=== PATIENT | female | born 1955 | race Two or more races ===

== ENCOUNTER 2019-07-18 05:09 | Inpatient (IN) | payer MEDICARE, MEDICAID ==
[~2019-07-18] VITALS: Ht 162.6 cm; Wt 97.1 kg
[2019-07-18 14:20] VITALS: BP 134/94
--- NOTE | 2019-07-18 14:20 | NUR ---
tele cafeteria aide: admission direct admitted this 63 year old pt from [facility] with dx: spontaneous bacterial peritonitis. awake, a/ox4. no c/o pain or any discomfort, but right lower quadrant tender to palpate. kept pt npo. place pt on tele [id number]. family at bedside. oriented to room and surroundings. paged dr. walker thru exchange. vss, afebrile. noted with 3 incisions to abdomen. right lower abdomen incision draining with yellow colored output. there is a pressure tube dressing placed by [facility].Helen instructed to call for assistance. will continue to monitor.
[2019-07-18] MEDS ORDERED: ENAL10TA PO (15:05)
[2019-07-18] MEDS ORDERED: Z GUARD REMEDY 2 OZ OINT TP PRN (15:30)
--- NOTE | 2019-07-18 16:10 | NUR ---
m/s hog ringer: notes tele removed. family remains at bedside. right lower abdomen incision still draining with yellow colored output. will continue to monitor.
[2019-07-18] MEDS: ENALAPRIL MALEATE (10 MG) 10 MG TABLET PO SCH (17:00)
[2019-07-18] MEDS ORDERED: CEFTRIAXONE 1 G in IV D5W 50 ML IV SCH (17:00)
[2019-07-18] MEDS ORDERED: DIATR MEGLU/DIATRIZOATE SODIUM 30 ML BOTTLE (GASTROGRAPHIN) ONE (17:41)
--- NOTE | 2019-07-18 17:45 | NUR ---
m/s fruit grading supervisor: surgeon consult dr. escalante at bedside and talking to pt and family and updating plan of care. pt and family verbalized understanding. stat labs ordered and ct angio abdomen and pelvis with oral and iv contrast. pt signed the consent.
[2019-07-18 17:52] LABS: BASOPHILS % (AUTO) 0.1 % (0.0-2.0); EOSINOPHILS % (AUTO) 0.1 % (0.0-6.0); HEMATOCRIT 41 % (33-45); HEMOGLOBIN 13.6 g/dL (11.5-14.8); LYMPHOCYTES # (AUTO) 1.6 /CMM (0.8-4.8); MEAN CORPUSCULAR HGB CONC 33 g/dl (31.0-36.0); MEAN CORPUSCULAR VOLUME 87 fL (82-100); MONOCYTES # (AUTO) 1.8 /CMM (0.1-1.30); MONOCYTES % (AUTO) 4.6 % (2.0-12.0); NEUTROPHILS % (AUTO) 91.2 % (43.0-81.0); PLATELET COUNT (AUTO) 544 /CMM (150-450); RED BLOOD CELL COUNT(AUTO) 4.72 MIL/uL (4.0-5.2)
[2019-07-18 18:01] LABS: CALCIUM, SERUM 8.9 mg/dL (8.5-10.1); CARBON DIOXIDE 26 mmol/L (21-32); CHLORIDE 105 mmol/L (98-107); CREATININE 1.1 mg/dL (0.6-1.3); GLUCOSE 135 mg/dL (74-106); SODIUM SERUM 140 mmol/L (136-145); UREA NITROGEN, BLOOD 35 mg/dL (7-18)
[2019-07-18 18:10] LABS: WHITE BLOOD COUNT (AUTO) 39.5 K/uL (4.3-11.0)
[2019-07-18 18:15] LABS: ALANINE AMINOTRANSFERASE 169 U/L (12-78); ALKALINE PHOSPHATASE 228 U/L (46-116); ASPARTATE AMINOTRANSFERASE 239 U/L (15-37); BILIRUBIN,TOTAL 1.3 mg/dL (0.2-1.0); TOTAL PROTEIN, SERUM 5.9 g/dL (6.4-8.2)
--- NOTE | 2019-07-18 18:15 | NUR ---
m/s transportation analyst: notes inserted ngt to right nostril and verified placement by dr. escalante and ordered stat chest x-ray for placement. order carried out and called radiology dept for stat order.
--- NOTE | 2019-07-18 18:30 | NUR ---
m/s ct technician: notes dr. walker at bedside talking to family with verbal order to d'c rocephin iv. order read back and carried out.
--- NOTE | 2019-07-18 18:40 | NUR ---
m/s serials librarian: notes chest x-ray taken and dr. escalante looked at this film and informed me to clamped ngt, administer the oral contrast, then after ct angio pull ngt just a little and do another chest x-ray to verify placement. ngt clamped at this time with 600ml of greenish gastric contents in suction bottle. oral contrast already mixed by [facility] in 1000 ml, 800ml given via ngt per dali (tech). pt to be picked up after 2 hours and will give the 200ml remaining by tech as stated.
[2019-07-18] MEDS ORDERED: FEE PK DOSING 1 MIN EA MC ONE (18:42)
[2019-07-18 18:45] LABS: LYMPHOCYTES % (MANUAL) 4 % (16-48); NEUTROPHILS % (MANUAL) 93 (42-76)
[2019-07-18 18:46] LABS: EOSINOPHILS % (MANUAL) 1 % (0-4); MONOCYTES % (MANUAL) 2 % (0-11.0)
--- NOTE | 2019-07-18 19:30 | NUR ---
m/s cnc manufacturing engineer: notes report given to marcia (primary nurse) for continuity of care. dr. escalante instructed nurse to keep him posted.
--- NOTE | 2019-07-18 19:57 | NUR ---
MS SHAH INITIAL NOTES RECEIVED REPORT FROM AM NURSE ANTHONY/PABLO WHILE DOING OUR ROUNDS AND SEEN PT IN BED AWAKE AND ALERT WITH NGT TO CONTINOUS SUCTION NOTED GREENISH/BROWN OUTPUT . NO N/V NOTED. RESPIRATION EVEN AND UNLABORED NOT IN ANY ACUTE DISTRESS NOTED. HEPLOCK AT THIS TIME. KEPT HER ON HOB ELEVATED AT 45 DEGREES FOR ASPIRATION PRECAUTION. ENCOURAGE PT TO USED THE CALL LIGHT SYSTEM IF SHE NEEDS SOME HELP. SIDE RAILS X2 UP AND PLACE CALL LIGHT AT REACH. WILL CONTINUE MONITORING. Addendum: 07/18/19 at 2030 by LUCILA DUKES LVN NGT CLAMPED AT THIS TIME BY ANTHONY BECAUSE PT GOING FOR CT SCAN OF ABDOMEN WITH CONTRAST. NO NV NOTED.
[2019-07-18 20:00] VITALS: BP 139/86
[2019-07-18] MEDS: PIPERACILLIN /TAZOBACTAM 3.375 G in IV D5W 50 ML IV SCH (20:18)
[2019-07-18] MEDS ORDERED: IOHEXOL-350 100 ML VIAL IV ONE (20:48)
[2019-07-18] MEDS ORDERED: CT SWABBABLE VALVE TRANS SET 1 EA INFUS.SET MC ONE (20:48)
[2019-07-18] MEDS ORDERED: IV NS 0.9% 250 ML IV ONE (20:49)
[2019-07-18] MEDS ORDERED: CEFOTAXIME SODIUM 2 G in IV D5W 50 ML IV SCH (21:00)
--- NOTE | 2019-07-18 21:15 | NUR ---
ms angus notes pt picked up by radiology rn . pt accompanied by her family . no signs of any acute distress noted.
[2019-07-18] MEDS: METRONIDAZOLE 500MG/ NS 100ML 500 MG in PREMIX 1 EA IV SCH (21:22)
--- NOTE | 2019-07-18 21:30 | NUR ---
ms angus notes pt came back from CT scan of her abdomen. no signs of any acute distress noted. Antibiotic started to infused again. kept her warm and comfortable at all times. no n/v noted. no adverse reaction from any contrast given . waiting for result.
--- NOTE | 2019-07-18 21:40 | NUR ---
ms greco notes Dr Saunders called and asking for the result. he ordered to call him on his number [phone] regarding the result. called the limited radiology technician and spoke to charisse and he told me he will call [facility] to do the stat result for the CT scan of the pt. will continue monitoring. Addendum: 07/19/19 at 0454 by LUCILA DUKES LVN radiology called DR Mica Simon to read the result.
--- NOTE | 2019-07-18 22:14 | NUR ---
MS PABLO NOTES Called Dr. Saunders to let him know the result of the CT scan. Spoke to him and he asked to take photo of the result using hospital /screen making supervisor cellphone and text to him.
[2019-07-18] MEDS: VANCOMYCIN 1 GM in IV D5W 250 ML IV SCH (22:30)
--- NOTE | 2019-07-18 22:34 | NUR ---
MS/RN NOTES IV ANTIBIOTIC VANCOMYCIN 1 GRAM INFUSING FOR ONE HOUR, PATIENT RIGHT AC ARM WITH NO INFILTRATION OR REDNESS, MONITORING FOR ANY CHANGES.
--- NOTE | 2019-07-18 23:45 | NUR ---
MS PABLO NOTES SPOKE TO DR MYERS AND GOT ORDERED TO CONTINUE MONITORING THE PT. NGT IN INTERMITTENT SUCTION AND KEPT PT NPO AND SOME BLOOD TEST IN AM ( CMP, LACTIC ACID). NO SURGERY AT THIS TIME. THEN AFTER THAT SPOKE TO THE FAMILY THAT IS WAITING AT THE PT BEDSIDE AND TOLD THEM WHAT'S THE MD ORDERED. PT AWAKE AND AWARE , DENIES ANY PAIN OR ANY DISCOMFORT. KEPT HER COMFORTABLE AT ALL TIMES. DUE ANTIBIOTIC INFUSING AT THIS TIME. NO ADVERSE REACTION NOTED.
--- NOTE | 2019-07-19 02:04 | NUR ---
ms angus notes pt sleeping at this time without any acute distress noted. NGT suctioned well with greenish colored output. no N/V noted as well as Aspiration noted. kept hob elevated at all times. will continue monitoring. place call light at reach.
[2019-07-19] MEDS: PIPERACILLIN /TAZOBACTAM 3.375 G in IV D5W 50 ML IV SCH ×4 (02:56→20:45)
[2019-07-19] MEDS: ONDANSETRON HCL/PF 4 MG/2 ML VIAL IVP PRN (03:24)
--- NOTE | 2019-07-19 03:24 | NUR ---
rn rehab notes checked pt and noticed dressings soak and wet , then after dressings changes, pt complaint of nauseated, Zofran IVP administered by another nurse as ordered. kept pt hob elevated and still on NGT with intermittent suction. no acute distress noted.
[2019-07-19] MEDS: METRONIDAZOLE 500MG/ NS 100ML 500 MG in PREMIX 1 EA IV SCH ×3 (04:58→21:29)
--- NOTE | 2019-07-19 07:20 | NUR ---
MS RN NOTES PATIENT IN BED, ALERT ORIENTED X 3. NO ACUTE DISTRESS NOTED BREATHING UNLABORED. IV ACCESS PATENT AND INTACT, NO REDNESS OR SWELLING NOTED.HOB ELEVATED .NGT INTACT SUCTIONING AND GREENISH OUTPUT. SAFETY MEASURES IN PLACE. CALL LIGHT WITHIN REACH. WILL CONTINUE TO MONITOR ACCORDINGLY.
[2019-07-19 07:38] LABS: BASOPHILS # (AUTO) 0.2 /CMM (0.0-0.2); BASOPHILS % (AUTO) 0.5 % (0.0-2.0); EOSINOPHILS % (AUTO) 0.2 % (0.0-6.0); HEMATOCRIT 42 % (33-45); HEMOGLOBIN 13.8 g/dL (11.5-14.8); LYMPHOCYTES # (AUTO) 1.6 /CMM (0.8-4.8); LYMPHOCYTES % (AUTO) 4.9 % (20.0-44.0); MEAN CORPUSCULAR HGB CONC 33 g/dl (31.0-36.0); MEAN CORPUSCULAR VOLUME 88 fL (82-100); MONOCYTES # (AUTO) 1.6 /CMM (0.1-1.30); MONOCYTES % (AUTO) 4.8 % (2.0-12.0); NEUTROPHILS # (AUTO) 29.7 /CMM (1.8-8.9); NEUTROPHILS % (AUTO) 89.6 % (43.0-81.0); PLATELET COUNT (AUTO) 534 /CMM (150-450); RED BLOOD CELL COUNT(AUTO) 4.75 MIL/uL (4.0-5.2)
--- NOTE | 2019-07-19 07:43 | NUR ---
MS STUDIO OPERATIONS ENGINEER IN CHARGE CLOSING NOTES PT AWAKE AND ALERT , DENIES ANY PAIN OR ANT DISCOMFORT. NO N/V NOTED AT THIS TIME. ALL DUE MEDS GIVEN AND ALL NEEDS MET. NGT STILL SUCTIONING AND GREENISH OUTPUT NOTED 500ML OUTPUT NOTED. KEPT HOB ELEVATED AT ALL TIMES. NO ACUTE DISTRESS NOTED. KEPT HER COMFORTABLE AT ALL TIMES. ENDORSE TO AM NURSE FOR CONTINUITY OF CARE. PLACE CALL LIGHT AT REACH.
[2019-07-19 07:47] LABS: WHITE BLOOD COUNT (AUTO) 33.2 K/uL (4.3-11.0)
--- NOTE | 2019-07-19 07:55 | NUR ---
MS RN NOTES LABORATORY TEST RESULTED WITH WBC CRITICALLY HIGH 33.2, JESSENIA PORTER ON THE FLOOR AWARE. NO NEW ORDERS MADE AT THIS TIME.
[2019-07-19 07:59] LABS: ALBUMIN 1.8 g/dL (3.4-5.0); BILIRUBIN,TOTAL 1.2 mg/dL (0.2-1.0); CALCIUM, SERUM 8.9 mg/dL (8.5-10.1); CREATININE 1.2 mg/dL (0.6-1.3); MAGNESIUM 2.4 mg/dL (1.8-2.4); PHOSPHORUS 3.2 mg/dL (2.5-4.9); POTASSIUM 3.9 mmol/L (3.5-5.1); TOTAL PROTEIN, SERUM 5.9 g/dL (6.4-8.2)
[2019-07-19 08:00] VITALS: BP 133/79
[2019-07-19 08:15] LABS: EOSINOPHILS % (MANUAL) 2 % (0-4); LYMPHOCYTES % (MANUAL) 7 % (16-48); MONOCYTES % (MANUAL) 4 % (0-11.0); NEUTROPHILS % (MANUAL) 87 (42-76)
[2019-07-19] MEDS: ENALAPRIL MALEATE (10 MG) 10 MG TABLET PO SCH ×2 (09:00→17:00)
[2019-07-19] MEDS: VANCOMYCIN 1 GM in IV D5W 250 ML IV SCH ×2 (10:11→22:15)
[2019-07-19] MEDS: IV NS 0.9% 1,000 ML IV PRN (12:55)
[2019-07-19 15:45] VITALS: BP 131/61
--- NOTE | 2019-07-19 19:25 | NUR ---
MS RN NOTES PATIENT IN BED, ALERT ORIENTED X 3. NO ACUTE DISTRESS NOTED BREATHING UNLABORED. IV ACCESS PATENT AND INTACT, NO REDNESS OR SWELLING NOTED.HOB ELEVATED .NGT STILL SUCTIONING AND GREENISH OUTPUT 500ML. NEEDS ATTENDED AND ANTICIPATION. SAFETY MEASURES IN PLACE. CALL LIGHT WITHIN REACH. ENDORSED TO NIGHT NURSE FOR CONTINUITY OF CARE.
--- NOTE | 2019-07-19 19:30 | NUR ---
MS RN OPENING NOTES RECEIVED PATIENT FROM MORNING SHIFT, ALERT AND ORIENTED X 4 BR[place] SPEAKING. FAMILY ON BEDSIDE; VERBALLY RESPONSIVE AND ABLE TO FOLLOW DIRECTIONS. BREATHING REGULAR AND UNLABORED ON ROOM AIR. NASOGASTRIC TUBE INTACT AND PATENT WITH GREENISH OUTPUT NOTED ON SUCTION CANISTER, MODERATE AMOUNT. ON INTERMITTENT SUCTION. RIGHT AC G 20 IV LINE INTACT AND PATENT INFUSING WELL WITH NO BLEEDING OR S/S OF INFILTRATION SEEN. RIGHT LOWER ABDOMEN POST SURGICAL SITE NOTED WITH COLLECTION BAG FOR DRAINAGE WITH MODERATE CLEAR YELLOW OUTPUT. NO COMPLAINTS OF PAIN/DISCOMFORT OR NAUSEA/VOMITING REPORTED OF THE TIME. BED LOW AND LOCKED ON SEMI FOWLERS POSITION. WILL CONTINUE TO MONITOR.
[2019-07-19 20:00] VITALS: BP 118/73
--- NOTE | 2019-07-19 20:30 | NUR ---
MS RN NOTES SEEN AND EXAMINED BY , DISCUSSED PATIENT CONDITION WITH FAMILY ON BEDSIDE TO TRANSLATE TO VIETNAMESE. WILL CONTINUE TO MONITOR.
[2019-07-20] MEDS: PIPERACILLIN /TAZOBACTAM 3.375 G in IV D5W 50 ML IV SCH ×4 (03:10→20:53)
[2019-07-20] MEDS: IV NS 0.9% 1,000 ML IV PRN ×2 (04:13→18:18)
[2019-07-20] MEDS: METRONIDAZOLE 500MG/ NS 100ML 500 MG in PREMIX 1 EA IV SCH ×3 (04:29→21:34)
--- NOTE | 2019-07-20 06:34 | NUR ---
MS RN CLOSING NOTES PATIENT IN BED, ALERT AND ORIENTED X 4 NIGERIEN SPEAKING. VERBALLY RESPONSIVE AND ABLE TO FOLLOW DIRECTIONS. BREATHING REGULAR AND UNLABORED ON ROOM AIR. NASOGASTRIC TUBE INTACT AND PATENT WITH GREENISH OUTPUT NOTED, ON MODERATE AMOUNT. MAINTAINED ON LOW INTERMITTENT SUCTION. SUCTION CANISTER AND TUBING CHANGED. RIGHT AC G 20 IV LINE INTACT AND PATENT INFUSING WELL WITH NO BLEEDING OR S/S OF INFILTRATION/INFECTION SEEN. RIGHT LOWER ABDOMEN POST SURGICAL SITE WITH COLLECTION BAG FOR DRAINAGE INTACT WITH LARGE CLEAR YELLOW TO LIGHT ORANGE OUTPUT. CHANGED THRICE IN THE SHIFT. ON IV ATB's WITH ADVERSE REACTIONS NOTED. NO COMPLAINTS OF PAIN/DISCOMFORT OR NAUSEA/VOMITING REPORTED WITHIN THE SHIFT. BED LOW AND LOCKED ON SEMI FOWLERS POSITION. WILL ENDORSE TO MORNING SHIFT FOR AM LABS, POSSIBLE TRANSFER [facility] AND [facility]. Addendum: 07/20/19 at 0641 by LES TOBAR RN ON IV ATB's WITH NO ADVERSE REACTIONS NOTED
[2019-07-20 07:27] LABS: BASOPHILS % (AUTO) 0.2 % (0.0-2.0); EOSINOPHILS % (AUTO) 0.2 % (0.0-6.0); HEMATOCRIT 40 % (33-45); HEMOGLOBIN 12.9 g/dL (11.5-14.8); LYMPHOCYTES # (AUTO) 1.3 /CMM (0.8-4.8); LYMPHOCYTES % (AUTO) 5.1 % (20.0-44.0); MEAN CORPUSCULAR HGB CONC 32 g/dl (31.0-36.0); MEAN CORPUSCULAR VOLUME 88 fL (82-100); MONOCYTES # (AUTO) 1.9 /CMM (0.1-1.30); MONOCYTES % (AUTO) 7.6 % (2.0-12.0); NEUTROPHILS # (AUTO) 21.2 /CMM (1.8-8.9); NEUTROPHILS % (AUTO) 86.9 % (43.0-81.0); PLATELET COUNT (AUTO) 561 /CMM (150-450); RED BLOOD CELL COUNT(AUTO) 4.55 MIL/uL (4.0-5.2); WHITE BLOOD COUNT (AUTO) 24.4 K/uL (4.3-11.0)
[2019-07-20 07:48] LABS: ALBUMIN 1.6 g/dL (3.4-5.0); BILIRUBIN,TOTAL 1.3 mg/dL (0.2-1.0); CALCIUM, SERUM 8.3 mg/dL (8.5-10.1); MAGNESIUM 2.3 mg/dL (1.8-2.4); PHOSPHORUS 2.7 mg/dL (2.5-4.9); TOTAL PROTEIN, SERUM 5.4 g/dL (6.4-8.2)
[2019-07-20 08:00] VITALS: BP 121/61
[2019-07-20] MEDS: ENALAPRIL MALEATE (10 MG) 10 MG TABLET PO SCH ×2 (09:00→17:00)
[2019-07-20 09:37] LABS: LYMPHOCYTES % (MANUAL) 9 % (16-48); MONOCYTES % (MANUAL) 4 % (0-11.0); NEUTROPHILS % (MANUAL) 87 (42-76)
[2019-07-20] MEDS: VANCOMYCIN 1 GM in IV D5W 250 ML IV SCH (09:56)
[2019-07-20 15:50] VITALS: BP 141/65
--- NOTE | 2019-07-20 18:59 | NUR ---
MS RN NOTES PATIENT IN BED, ALERT ORIENTED X 3. NO ACUTE DISTRESS NOTED. BREATHING UNLABORED. IV ACCESS PATENT AND INTACT, NO REDNESS OR SWELLING NOTED.HOB ELEVATED .NGT INTACT SUCTIONING AND GREENISH 250CC OUTPUT. NEEDS ATTENDED AND ANTICIPATED.KEPT CLEAN DRY AND COMFORTABLE .SAFETY MEASURES IN PLACE. CALL LIGHT WITHIN REACH. WILL ENDORSED TO NIGHT NURSE FOR CONTINUITY OF CARE.
--- NOTE | 2019-07-20 19:42 | NUR ---
MS RN OPENING NOTES RECEIVED PATIENT FROM MORNING SHIFT, ALERT AND ORIENTED X 4 PALESTINIAN SPEAKING. FAMILY ON BEDSIDE; VERBALLY RESPONSIVE AND ABLE TO FOLLOW DIRECTIONS. BREATHING REGULAR AND UNLABORED ON ROOM AIR. NASOGASTRIC TUBE INTACT AND PATENT WITH GREENISH OUTPUT NOTED IN SCANT AMOUNT. STILL ON LOW INTERMITTENT SUCTION. RIGHT AC G 20 IV LINE INTACT AND PATENT INFUSING WELL WITH NO BLEEDING OR S/S OF INFILTRATION/INFECTION SEEN. RIGHT LOWER ABDOMEN POST SURGICAL SITE NOTED WITH COLLECTION BAG FOR DRAINAGE WITH MODERATE CLEAR YELLOW TO LIGHT ORANGE OUTPUT. NO COMPLAINTS OF PAIN/DISCOMFORT OR NAUSEA/VOMITING REPORTED OF THE TIME. BED LOW AND LOCKED ON SEMI FOWLERS POSITION. WILL CONTINUE TO MONITOR.
[2019-07-20 20:00] VITALS: BP 98/57
[2019-07-20] MEDS: HEPARIN SODIUM, PORCINE 5000 UNITS/1 ML VIAL SQ SCH (21:04)
[2019-07-20] MEDS: VANCOMYCIN 0.75 GM in IV D5W 250 ML IV SCH (23:20)
[2019-07-21] MEDS: PIPERACILLIN /TAZOBACTAM 3.375 G in IV D5W 50 ML IV SCH ×4 (02:54→21:21)
[2019-07-21] MEDS: METRONIDAZOLE 500MG/ NS 100ML 500 MG in PREMIX 1 EA IV SCH ×3 (04:22→20:16)
[2019-07-21 06:17] LABS: BASOPHILS % (AUTO) 0.3 % (0.0-2.0); EOSINOPHILS % (AUTO) 0.2 % (0.0-6.0); HEMATOCRIT 40 % (33-45); HEMOGLOBIN 12.9 g/dL (11.5-14.8); LYMPHOCYTES # (AUTO) 1.2 /CMM (0.8-4.8); LYMPHOCYTES % (AUTO) 6.3 % (20.0-44.0); MEAN CORPUSCULAR HGB CONC 32 g/dl (31.0-36.0); MEAN CORPUSCULAR VOLUME 88 fL (82-100); MONOCYTES # (AUTO) 1.7 /CMM (0.1-1.30); NEUTROPHILS # (AUTO) 16.2 /CMM (1.8-8.9); NEUTROPHILS % (AUTO) 84.2 % (43.0-81.0); PLATELET COUNT (AUTO) 544 /CMM (150-450); RED BLOOD CELL COUNT(AUTO) 4.55 MIL/uL (4.0-5.2); WHITE BLOOD COUNT (AUTO) 19.3 K/uL (4.3-11.0)
--- NOTE | 2019-07-21 06:30 | NUR ---
MS RN CLOSING NOTES PATIENT IN BED, ALERT AND ORIENTED X 4 LATVIAN SPEAKING. VERBALLY RESPONSIVE AND ABLE TO FOLLOW DIRECTIONS. BREATHING REGULAR AND UNLABORED ON ROOM AIR. NASOGASTRIC TUBE INTACT AND PATENT WITH GREENISH OUTPUT NOTED, ON MODERATE AMOUNT. MAINTAINED ON LOW INTERMITTENT SUCTION. SUCTION CANISTER AND TUBING CHANGED. RIGHT AC G 20 IV LINE INTACT AND PATENT INFUSING WELL WITH NO BLEEDING OR S/S OF INFILTRATION/INFECTION SEEN. RIGHT LOWER ABDOMEN POST SURGICAL SITE WITH COLLECTION BAG FOR DRAINAGE INTACT WITH MODERATE AMOUNT OF LIGHT ORANGE OUTPUT. DRAINAGE BAG CHANGED. ON IV ATB's WITH NO ADVERSE REACTIONS NOTED. NO COMPLAINTS OF PAIN/DISCOMFORT OR NAUSEA/VOMITING REPORTED WITHIN THE SHIFT. BED LOW AND LOCKED ON SEMI FOWLERS POSITION. WILL ENDORSE TO MORNING SHIFT FOR AM LABS, POSSIBLE TRANSFER [facility] AND [facility].
[2019-07-21 06:43] LABS: CALCIUM, SERUM 8.3 mg/dL (8.5-10.1); CREATININE 0.9 mg/dL (0.6-1.3); MAGNESIUM 2.4 mg/dL (1.8-2.4); PHOSPHORUS 2.9 mg/dL (2.5-4.9); POTASSIUM 3.8 mmol/L (3.5-5.1)
[2019-07-21] MEDS: IV NS 0.9% 1,000 ML IV PRN ×2 (06:43→19:40)
--- NOTE | 2019-07-21 07:19 | NUR ---
RN OPENING NOTE PT WAS RECEIVED IN BED AT LOWEST AND LOCKED POSITION WITH SIDE RAILS UPX2, A/O X4 NAMIBIAN SPEAKING WITH NO S/S OF ANY DISTRESS OR PAIN NOTED AT THIS TIME, NGT IN PLACE ON LIS, NOTED TO HAVE RIGHT LOWER ABD INCISION WITH DRAINAGE, PT CURRENTLY NPO, IV IS PATENT AND INTACT WITH IVF RUNNING, SAFETY PRECAUTIONS IN PLACE, CALL LIGHT WITHIN REACH, WILL MONITOR PT ACCORDINGLY.
[2019-07-21 08:00] VITALS: BP 147/67
[2019-07-21] MEDS: HEPARIN SODIUM, PORCINE 5000 UNITS/1 ML VIAL SQ SCH (08:23)
[2019-07-21] MEDS: ENALAPRIL MALEATE (10 MG) 10 MG TABLET PO SCH ×2 (08:23→16:06)
--- NOTE | 2019-07-21 08:26 | NUR ---
RN NOTE SCHEDULED DOSE OF IV ZOSYN WAS NOTED TO BE LEAKING, PHARMACY CALLED AND SPOKE TO TYSON WHO WAS MADE AWARE, WILL AWAIT FOR NEW DOSE OF IV ZOSYN TO BE BROUGHT UP
--- NOTE | 2019-07-21 09:45 | NUR ---
RN NOTE CALLED RECEIVED FROM PHARMACY AND INFORMED THAT PT WILL BE STARTED ON HEPARIN DRIP. PHARMACY INFORMED THAT PT IS HARDSTICK AND HAS MUTIPLE IV DRUGS SO MIDLINE IS NEEDED. NURSING CASHIERS SUPERVISOR ALSO MADE AWARE OF NEEDING MIDLINE. WILL CALL BACK PHARMACY REGARDING HEPARIN ONCE MIDLINE IS PLACED. STAT PTT ORDERED WELL.
[2019-07-21] MEDS: VANCOMYCIN 0.75 GM in IV D5W 250 ML IV SCH ×2 (10:26→22:48)
--- NOTE | 2019-07-21 10:39 | NUR ---
RN NOTE INFORMED BY PIPE MANUFACTURE SUPERVISOR JINA THAT MIDLINE NURSE WILL BE COMING AROUND [address] MIDLINE
--- NOTE | 2019-07-21 11:22 | NUR ---
RN NOTE INFORMED DR. ANA MYERS ABOUT GI DOCTOR ORDERING TO REMOVE NGT AND CLEAR DIET, DR. MYERS STATED TO KEEP NGT IN PLACE AND TO KEEP PT NPO.
--- NOTE | 2019-07-21 11:30 | NUR ---
RN NOTE SPOKE TO REGARDING IF HEPARIN BOLUS SHOULD BE GIVEN OR NOT SINCE AM DOSE OF SQ HEPARIN WAS GIVEN, INFORMED BY TO CALL PHARMACY AND VERIFRY WITH THEM. PHARMACYWAS CALLED REGARDING IF BOLUS SHOULD BE GIVEN WHEN HEPARIN IS STARTED DUE TO PT RECEIVING AM DOSE OF SQ HEPARIN, PER PHARMACY NO BOLUS SHOULD BE GIVEN. INFORMATION NOT AND HEPARIN PROTOCOL SHEET FAXED TO PHARMACY. WILL START HEPARIN ONCE MIDLINE IS PLACED. Addendum: 07/21/19 at 1536 by SUSANA RODRIGUEZ RN DR. PORTILLO WAS ALSO MADE AWARE THAT IN NOTE IT STATED "PER MY DISCUSSION WITH THORACIC SURGERY, BOTH SURGEONS RECOMMEND FULL ANTICOAGULATION HEPARIN UNTIL READY FOR DC(IE, NO SURGERY REQUIRED)" AND CLARIFIED WHETHER OR NOT IT WAS OKAY TO GIVEN HEPARIN. PER DR. PORTILLO IT IS OKAY TO GIVE.
[2019-07-21] MEDS: HEPARIN INFUSION/D5W 500 ML IV PRN (13:36)
--- NOTE | 2019-07-21 13:37 | NUR ---
RN NOTE PER HEPARIN PROTOCOL, HEPARIN UNIT AMOUNT CALCULATED AND NOTED TO BE 1674UNITS/HR BASED ON WEIGHT. SPOKE TO ELTON AT PHARMACY WHO SAID WE SHOULD ROUND UP AND ADMINISTER 1700 UNITS/HR. HEPARIN RATE WAS VERIFIED BY MILAGROS RODARTE AND ADMINISTERED
[2019-07-21 16:00] VITALS: BP 142/75
--- NOTE | 2019-07-21 18:56 | NUR ---
RN CLOSING NOTE PT IN BED AT LOWEST AND LOCKED POSITION WITH SIDE RAILS UPX2, A/O X4 WITH NO S/S OF ANY DISTRESS OR PAIN NOTED AT THIS TIME, NGT IN PLACE ON LIS, IV IS PATENT AND INTACT WITH IVF RUNNING, SAFETY PRECAUTIONS IN PLACE, CALL LIGHT WITHIN REACH, WILL ENDORSE TO NIGHT RN FOR [facility].
--- NOTE | 2019-07-21 19:16 | NUR ---
RN OPENING NOTES 1915 RECEIVED PATIENT FROM MILAGROS MEZA. PATIENT ALERT AND ORIENTED X 4, LAO SPEAKING. FAMILY CURRENTLY AT BED SIDE. NO SIGNS OF RESPIRATORY DISTRESS. BREATHING REGULAR AND UNLABORED ON ROOM AIR, TOLERATING WELL. NASOGASTRIC TUBE INTACT AND PATENT WITH GREENISH OUTPUT NOTED. ON LOW INTERMITTENT SUCTION. IV SITES INTACT AND PATENT INFUSING WELL WITH NO BLEEDING OR S/S OF INFILTRATION/INFECTION SEEN. PATIENT HAS RIGHT LOWER ABDOMINAL INCISION WITH DRAINAGE. NO COMPLAINTS OF PAIN OR DISCOMFORT AT THIS TIME. PATIENT NPO AT THIS TIME. SAFETY PRECAUTIONS IMPLEMENTED; CALL LIGHT WITHIN REACH, BED LOWEST POSITION, BED LOCKED, SIDE RAILS UP X2. WILL CONTINUE TO MONITOR PATIENT.
[2019-07-21 20:00] VITALS: BP 143/70
--- NOTE | 2019-07-21 20:43 | NUR ---
RN NOTES LAB RESULTS FOR 1930 STILL PENDING.
--- NOTE | 2019-07-21 21:11 | NUR ---
RN NOTES STILL WAITING ON APTT RESULTS. SPOKE WITH RENA FROM LAB. SHE SAYS THE MACHINE IS NOT WORKING. NO RESULTS YET. SHE WILL CALL BACK
--- NOTE | 2019-07-21 21:37 | NUR ---
RN NOTES APTT STILL PENDING. CHARGE NURSE, KESHA DE LUNA. PER CHARGE NURSE: KEEP HEPARIN RUNNING. WAIT FOR RESULTS
--- NOTE | 2019-07-21 21:51 | NUR ---
RN NOTES RECEIVED CALL FROM NANCY RODRIGUEZ, APTT RESULT 204.
--- NOTE | 2019-07-21 22:03 | NUR ---
RN NOTES 2200 PER CHARGE NURSE CALIXTO, TO STOP HEPARIN FOR NOW. FLUSH AND CLAMP IV SITE FOR NOW. CALL HEPARIN IS STOPPED FOR NOW.
--- NOTE | 2019-07-21 22:34 | NUR ---
RN NOTES PAGED EPIC TO NOTIFY DR. CROSS OF APTT RESULT OF 204. NO ANSWER AFTER CLINICAL ACCOUNT EXECUTIVE TRIED CALLING. DR. CROSS WILL CALL BACK.
--- NOTE | 2019-07-21 23:00 | NUR ---
RN NOTES DR. CROSS ORDERED TO HOLD THE HEPARIN DOSE FOR ONE HOUR. RESTART HEPARIN WITH A SMALLER DOSE. HE CONFIRMED THE SMALLER DOSE TO BE 1200 UNITS/HR. THEN DRAW NEW APTT LABS 4 HOURS LATER. WILL START AT 0000 AND HAVE LABS DRAWN AT 0400 FOR APTT.
[2019-07-22] MEDS: PIPERACILLIN /TAZOBACTAM 3.375 G in IV D5W 50 ML IV SCH ×3 (02:00→15:15)
[2019-07-22] MEDS: ONDANSETRON HCL/PF 4 MG/2 ML VIAL IVP PRN (03:58)
--- NOTE | 2019-07-22 04:09 | NUR ---
RN NOTES PATIENT STATES SHE IS A BIT NAUSEOUS. SHE REFUSED ZOFRAN AT BED SIDE WHEN I EXTRACTED FROM THE VIAL. SHE STATES SHE WILL BE FINE WITHOUT IT. NO ZOFRAN WAS GIVEN. EXPLAINED THE RISKS AND BENEFITS OF ZOFRAN. PATIENT STILL REFUSED. ANA CRISTINA WEBB, WITNESSED AND TRANSLATED.
--- NOTE | 2019-07-22 04:12 | NUR ---
RN NOTES AWAITING APTT RESULTS FROM LAB FOR HEPARIN DRIP.
[2019-07-22] MEDS: METRONIDAZOLE 500MG/ NS 100ML 500 MG in PREMIX 1 EA IV SCH ×2 (04:37→13:35)
--- NOTE | 2019-07-22 04:48 | NUR ---
RN NOTES CALLED LAB FOR PTT VALUE. NO RESULT YET. THEY WILL CALL BACK.
--- NOTE | 2019-07-22 05:34 | NUR ---
RN NOTES COAGULATION RESULTS STILL PENDING AT THIS TIME.
--- NOTE | 2019-07-22 07:01 | NUR ---
RN NOTES NO CHANGE TO HEPARIN LEVEL.
--- NOTE | 2019-07-22 07:02 | NUR ---
RN CLOSING NOTES PATIENT IS CURRENTLY ASLEEP, RESTING COMFORTABLY IN BED, EASILY AROUSABLE. PATIENT REMAINS ON ROOM AIR, TOLERATING WELL. NO SIGNS OF RESPIRATORY DISTRESS. BREATHING REGULAR AND UNLABORED ON ROOM AIR. NASOGASTRIC TUBE REMAINS INTACT AND PATENT WITH GREENISH OUTPUT NOTED. MAINTAINED ON LOW INTERMITTENT SUCTION. SUCTION CANISTER AND TUBING CHANGED. IV SITES REMAINS INTACT AND PATENT FLUSHING WELL WITH NO S/S OF INFILTRATION/INFECTION NOTED. RIGHT LOWER ABDOMINAL INCISION WITH COLLECTION BAG FOR DRAINAGE INTACT WITH A TOTAL OF 400 ML. NO COMPLAINTS OF PAIN OR DISCOMFORT AT THIS TIME. ALL MEDICATION GIVEN ORDERED. PATIENT KEPT CLEAN, DRY AND COMFORTABLE. ALL NEEDS MET AT THIS TIME. SAFETY PRECAUTIONS IMPLEMENTED; CALL LIGHT WITHIN REACH, BED LOWEST POSITION, BED LOCKED, SIDE RAILS UP X2. WILL ENDORSE TO DAYSHIFT NURSE FOR CONTINUITY OF CARE
--- NOTE | 2019-07-22 07:45 | NUR ---
RN MS OPENING NOTES Patient received on room air, no sob noted, a/o x4. Patient is on heparin drip with 1200 units per hour at this time. aPTT at 0540 was 51.3. Patient remains NPO at this time. Patient denies pain at this time and is able to verbalize needs and wants. Bed at the lowest setting, call light within reach, side rails up x2.
[2019-07-22 07:59] LABS: CALCIUM, SERUM 8.1 mg/dL (8.5-10.1); CREATININE 0.9 mg/dL (0.6-1.3); POTASSIUM 3.4 mmol/L (3.5-5.1)
[2019-07-22 08:00] VITALS: BP 133/66
[2019-07-22] MEDS: ENALAPRIL MALEATE (10 MG) 10 MG TABLET PO SCH ×2 (08:17→17:00)
[2019-07-22] MEDS: HEPARIN INFUSION/D5W 500 ML IV PRN (08:21)
[2019-07-22] MEDS: IV NS 0.9% 1,000 ML IV PRN (09:56)
--- NOTE | 2019-07-22 10:17 | NUR ---
RN NOTES Patient's sitter stated that patient had a seizure for a few seconds, eyes going up. Patients vital signs remain stable, spo2 of 97% and hear rate of 80. Addendum: 07/22/19 at 1316 by NITHIN LOPEZ RN ERROR. NOTE IS NOT FOR PATIENT.
[2019-07-22] MEDS ORDERED: LORAZEPAM INJ 2 MG/ML VIAL IV PRN (10:30)
[2019-07-22] MEDS: POTASSIUM CL. PREMIX PERIPHER. 50 ML IV SCH ×2 (11:06→16:31)
[2019-07-22] MEDS: VANCOMYCIN 0.75 GM in IV D5W 250 ML IV SCH (11:46)
--- NOTE | 2019-07-22 13:16 | NUR ---
RN NOTES Patient's PTT at 107.1. holding heparin and will resume with a different dose at 1415
--- NOTE | 2019-07-22 14:20 | NUR ---
RN NOTES Heparin restarted at 950 units per hour per protocol. PTT in 6 hours.
[2019-07-22 16:00] VITALS: BP 135/64
[2019-07-22 16:52] LABS: BASOPHILS # (AUTO) 0.1 /CMM (0.0-0.2); BASOPHILS % (AUTO) 0.3 % (0.0-2.0); EOSINOPHILS % (AUTO) 0.4 % (0.0-6.0); HEMATOCRIT 39 % (33-45); HEMOGLOBIN 12.5 g/dL (11.5-14.8); LYMPHOCYTES # (AUTO) 1.6 /CMM (0.8-4.8); LYMPHOCYTES % (AUTO) 8.9 % (20.0-44.0); MEAN CORPUSCULAR HGB CONC 32 g/dl (31.0-36.0); MEAN CORPUSCULAR VOLUME 90 fL (82-100); MONOCYTES # (AUTO) 1.8 /CMM (0.1-1.30); MONOCYTES % (AUTO) 9.9 % (2.0-12.0); NEUTROPHILS # (AUTO) 14.2 /CMM (1.8-8.9); NEUTROPHILS % (AUTO) 80.5 % (43.0-81.0); PLATELET COUNT (AUTO) 521 /CMM (150-450); RED BLOOD CELL COUNT(AUTO) 4.38 MIL/uL (4.0-5.2); WHITE BLOOD COUNT (AUTO) 17.7 K/uL (4.3-11.0)
[2019-07-22 17:00] VITALS: BP 135/64
--- NOTE | 2019-07-22 18:43 | NUR ---
RN MS CLOSING NOTES Patient remains on room air, no sob noted, a/o x4. Patient denies pain at this time. NGT remains running on intermittent suction. Patient remains NPO at this time. Right hand 22 remains flowing at this time. JOSEPH midline with heparin 950 units per hour, per protocol. Patient awaiting to be transferred to [facility] at this time. Bed at the lowest setting, call light within reach, side rails up x2. Will give report to NOC RN for [facility] bedside.
--- NOTE | 2019-07-22 19:27 | NUR ---
RN MS DISCHARGE NOTES Patient discharged at this time. Per Dr. Villanueva, disconnect the heparin for now during transport. NGT and IV lines kept intact. Photos taken and is in chart. Patient did not want to remove the cover for her right lower wound. And she only wanted those 2 to be taken. Patient has all paper work in her possession.
== END 2019-07-22 19:30 | disposition short-term general hospital (02) | DRG 871 ==
LOC: TELE 14:06 → MED 16:38
PROVIDERS: ADMIT Family Medicine; ATTEND Student in an Organized Health Care Education/Training Program
PROC: 05H933Z Insertion of Infusion Device into Right Brachial Vein, Percutaneous Approach (ICD-10-PCS; principal; 2019-07-21)
PROC: B54MZZA Ultrasonography of Right Upper Extremity Veins, Guidance (ICD-10-PCS; 2019-07-21)
DX: A41.9 Sepsis, unspecified organism (principal); K65.2 Spontaneous bacterial peritonitis; N17.0 Acute kidney failure with tubular necrosis; K72.00 Acute and subacute hepatic failure without coma; E43 Unspecified severe protein-calorie malnutrition; K55.9 Vascular disorder of intestine, unspecified; I75.89 Atheroembolism of other site; I74.11 Embolism and thrombosis of thoracic aorta; K56.7 Ileus, unspecified; R18.8 Other ascites; K56.609 Unspecified intestinal obstruction, unspecified as to partial versus complete obstruction; I25.10 Atherosclerotic heart disease of native coronary artery without angina pectoris; I10 Essential (primary) hypertension; R73.9 Hyperglycemia, unspecified; K21.9 Gastro-esophageal reflux disease without esophagitis; Z87.891 Personal history of nicotine dependence; D72.829 Elevated white blood cell count, unspecified; Z95.5 Presence of coronary angioplasty implant and graft; R94.5 Abnormal results of liver function studies; D73.5 Infarction of spleen; E78.5 Hyperlipidemia, unspecified; E66.9 Obesity, unspecified; Z68.37 Body mass index [BMI] 37.0-37.9, adult; D47.3 Essential (hemorrhagic) thrombocythemia; E80.6 Other disorders of bilirubin metabolism; R74.0 Nonspecific elevation of levels of transaminase and lactic acid dehydrogenase [LDH]; I70.0 Atherosclerosis of aorta; K44.9 Diaphragmatic hernia without obstruction or gangrene; K76.0 Fatty (change of) liver, not elsewhere classified; R59.0 Localized enlarged lymph nodes
CPT/HCPCS: 36415; 71045-TC; 80048-TC; 80053-TC; 80061-TC; 80202-TC; 83605-TC; 83735-TC; 84100-TC; 84484-TC; 85025-TC; 85730-TC; 87081-TC; 93307-TC; 97110-TC; 97116-TC; 97530-TC; A4216; A6253; A6403; G0378; J0696; J0698; J1644; J2405; J2543; J3370; J3480; J3490; J7030; J7050; J7060; Q9963; Q9967